=== PATIENT | male | born 1995 | race American Indian/Alaskan Native ===

== ENCOUNTER 2017-12-11 11:29 | Emergency (ER) | payer OTHER ==
[2017-12-11] MEDS ORDERED: ZOFRAN IV ONE ×2 (12:04→13:54)
[2017-12-11] MEDS ORDERED: SUBLIMAZE IV ONE (12:04)
--- NOTE | 2017-12-11 12:07 | Emergency Department Report ---
Blank Doc - Documentation Documentation: Patient is 22 years old male with no significant past medical history. Patient presented to the ER complaining of right testicular pain and swelling. Patient stated that pain started when he wake up this morning about 8:00 AM. Patient is complaining of nausea vomiting and he stated that the patient is going up to his groin area. Patient denied any penile discharge or fever. Differential diagnosis includes acute testicular torsion, epididymitis or possibly obstructed hernia. Stat testicular ultrasound ordered. Patient need to be managed in our main ED.
[2017-12-11] MEDS ORDERED: SUBLIMAZE ONE (12:36)
--- NOTE | 2017-12-11 13:37 | Ultrasound Report ---
FINAL REPORT EXAM: US TESTICULAR DOPPLER COMP HISTORY: right testicular swelling and pain TECHNIQUE: Scrotal ultrasound with Doppler. PRIORS: None. FINDINGS: The right testicle measures 4.7 x 2.4 x 2.5 cm. The left measures 4.7 x 1.9 x 2.6 cm. The right testicle slightly more echogenic than the left. There is no intratesticular mass seen. There is a small to moderate hydrocele on the right. No significant blood flow seen to the right testicle. This is concerning for right testicular torsion. IMPRESSION: Findings are compatible with right-sided testicular torsion. Dr. Woodson notified of results on 12/11/2017 at 1:26 p.m. EST.
[2017-12-11] MEDS ORDERED: DILAUDID ONE (13:44)
[2017-12-11 13:49] VITALS: BP 152/85
[2017-12-11] MEDS ORDERED: DILAUDID IV ONE ×2 (13:54→14:51)
[2017-12-11 13:59] LABS: Hematocrit 46.9 % (35.5-45.6); Hemoglobin 15.5 gm/dl (11.8-15.2); Mean Corpuscular HGB Conc 33 % (32-34); Mean Corpuscular Hemoglobin 31 pg (28-32); Mean Corpuscular Volume 93 fl (84-94); Platelet Count 156 K/mm3 (140-440); Red Blood Count 5.05 M/mm3 (3.65-5.03); Red Cell Distribution Width 14.7 % (13.2-15.2)
--- NOTE | 2017-12-11 14:16 | Emergency Department Report ---
ED Male HPI - General Chief complaint: Abdominal Pain Stated complaint: STOMACH PAIN Time Seen by Provider: 12/11/17 11:54 Source: patient Mode of arrival: Ambulatory Limitations: No Limitations - History of Present Illness Initial comments: 22-year-old male with no significant past medical surgical history presents also complaining of right testicular pain upon awakening at 8 AM. Pain is constant, rated 9/10 in intensity, worse with palpation and movement. Positive associated nausea vomiting. No fever. No urine output since waking up this morning. Denies trauma or fever - Related Data Allergies Allergy/AdvReac Type Severity Reaction Status Date / Time No Known Allergies Allergy Unverified 12/11/17 11:48 ED Review of Systems ROS: Stated complaint: STOMACH PAIN Other details as noted in HPI Comment: All other systems reviewed and negative ED Past Medical Hx - Past Medical History Previous Medical History?: No - Surgical History Past Surgical History?: No - Social History Smoking Status: Current Every Day Smoker Substance Use Type: None ED Physical Exam - General Limitations: No Limitations - Other Other exam information: General: No limitations Head exam: Atraumatic, normocephalic Eyes exam: Normal appearance ENT: Moist mucous membrane, normal oropharynx Neck exam: Normal inspection, full range of motion Respiratory exam: Clear to auscultation bilateral, no wheezes, rales, crackles Cardiovascular: Normal rate and rhythm Abdomen: Soft, nondistended, and nontender, with normal bowel sounds, no rebound, or guarding : Right testicular swelling and tenderness. Circumcised penis without lesions or discharge Extremity: Full range of motion normal inspection no deformity Back: Normal Inspection, full range of motion, no tenderness Neurologic: Alert, oriented x3, cranial nerves intact, no motor or sensory deficit Psychiatric: normal affect, normal mood Skin: Warm, dry, intact ED Course Vital Signs 12/11/17 12/11/17 12/11/17 11:46 13:48 13:49 Temperature 97.5 F L 98.1 F Pulse Rate 55 L 48 L Respiratory 16 17 17 Rate Blood Pressure 137/98 Blood Pressure 152/85 [Left] O2 Sat by Pulse 100 100 100 Oximetry - Reevaluation(s) Reevaluation #1: 12/11/17 14:00 I attempted to detorsoin testicle use an open book technique. There is minimal movement of the testicle and patient did not have any relief in pain. Patient was provided fentanyl and Dilaudid prior to detorsion attempts. Bedside ultrasound performed with vascular probe is still demonstrated no flow to the right testicle. - Consultations Consultation #1: 12/11/17 13:30 [facility] called via transfer service. Awaiting urology consult at 13:55 [facility] contacted via transfer service, awaitng call back 13:45 attempted [facility] (urolgy here but no personal loan specialist) no response 14:[address] [facility] for transfer to [facility] ED. ER physician accepted pt fro ED to ED transfer and will consult Urology upon arrival ED Medical Decision Making - Lab Data Result diagrams: 12/11/17 13:32 12/11/17 13:32 Lab Results 12/11/17 12/11/17 Range/Units 13:32 13:32 WBC 18.4 H (4.5-11.0) K/mm3 RBC 5.05 H (3.65-5.03) M/mm3 Hgb 15.5 H (11.8-15.2) gm/dl Hct 46.9 H (35.5-45.6) % MCV 93 (84-94) fl MCH 31 (28-32) pg MCHC 33 (32-34) % RDW 14.7 (13.2-15.2) % Plt Count 156 (140-440) K/mm3 Add Manual Diff Complete Total Counted 100 Seg Neuts % (Manual) 54.0 (40.0-70.0) % Band Neutrophils % 0 % Lymphocytes % (Manual) 6.0 L (13.4-35.0) % Reactive Lymphs % (Man) 0 % Monocytes % (Manual) 3.0 (0.0-7.3) % Eosinophils % (Manual) 35.0 H (0.0-4.3) % Basophils % (Manual) 2.0 H (0.0-1.8) % Metamyelocytes % 0 % Myelocytes % 0 % Promyelocytes % 0 % Blast Cells % 0 % Nucleated RBC % Not Reportable Seg Neutrophils # Man 9.9 H (1.8-7.7) K/mm3 Band Neutrophils # 0.0 K/mm3 Lymphocytes # (Manual) 1.1 L (1.2-5.4) K/mm3 Abs React Lymphs (Man) 0.0 K/mm3 Monocytes # (Manual) 0.6 (0.0-0.8) K/mm3 Eosinophils # (Manual) 6.4 H (0.0-0.4) K/mm3 Basophils # (Manual) 0.4 H (0.0-0.1) K/mm3 Metamyelocytes # 0.0 K/mm3 Myelocytes # 0.0 K/mm3 Promyelocytes # 0.0 K/mm3 Blast Cells # 0.0 K/mm3 WBC Morphology Not Reportable Hypersegmented Neuts Not Reportable Hyposegmented Neuts Not Reportable Hypogranular Neuts Not Reportable Smudge Cells Not Reportable Toxic Granulation Not Reportable Toxic Vacuolation Not Reportable Dohle Bodies Not Reportable Pelger-Huet Anomaly Not Reportable Kellen Rods Not Reportable Platelet Estimate Cons Clumped Platelets Not Reportable Plt Clumps, EDTA Not Reportable Large Platelets Not Reportable Giant Platelets Not Reportable Platelet Satelliting Not Reportable Plt Morphology Comment Not Reportable RBC Morphology Normal Dimorphic RBCs Not Reportable Polychromasia Not Reportable Hypochromasia Not Reportable Poikilocytosis Not Reportable Anisocytosis Not Reportable Microcytosis Not Reportable Macrocytosis Not Reportable Spherocytes Not Reportable Pappenheimer Bodies Not Reportable Sickle Cells Not Reportable Target Cells Not Reportable Tear Drop Cells Not Reportable Ovalocytes Not Reportable Helmet Cells Not Reportable Mccabe-[place] Bodies Not Reportable [place] Not Reportable [place] Cells Not Reportable Bite Cells Not Reportable Crenated Cell Not Reportable Elliptocytes Not Reportable Acanthocytes (Spur) Not Reportable Rouleaux Not Reportable Hemoglobin C Crystals Not Reportable Schistocytes Not Reportable Malaria parasites Not Reportable Misael Bodies Not Reportable Hem Pathologist Commnt No Sodium 140 (137-145) mmol/L Potassium 3.5 L (3.6-5.0) mmol/L Chloride 101.4 (98-107) mmol/L Carbon Dioxide 22 (22-30) mmol/L Anion Gap 20 mmol/L BUN 14 (9-20) mg/dL Creatinine 0.9 (0.8-1.5) mg/dL Estimated GFR > 60 ml/min BUN/Creatinine Ratio 16 % Glucose 86 (75-100) mg/dL Calcium 9.8 (8.4-10.2) mg/dL Total Bilirubin 0.50 (0.1-1.2) mg/dL AST 21 (5-40) units/L ALT 21 (7-56) units/L Alkaline Phosphatase 82 (35-129) units/L Total Protein 8.6 H (6.3-8.2) g/dL Albumin 4.7 (3.9-5) g/dL Albumin/Globulin Ratio 1.2 % - Radiology Data Radiology results: report reviewed TECHNIQUE: Scrotal ultrasound with Doppler. PRIORS: None. FINDINGS: The right testicle measures 4.7 x 2.4 x 2.5 cm. The left measures 4.7 x 1.9 x 2.6 cm. The right testicle slightly more echogenic than the left. There is no intratesticular mass seen. There is a small to moderate hydrocele on the right. No significant blood flow seen to the right testicle. This is concerning for right testicular torsion. IMPRESSION: Findings are compatible with right-sided testicular torsion. Dr. Woodson notified of results on 12/11/2017 at 1:26 p.m. EST. - Medical Decision Making Patient with acute right testicular torsion with unsuccessful detorsion attempt in the ed We do not have urology personal loan specialist. I was able to have [facility] except the patient for transfer. Patient be emergently transferred to [facility] for definitive management and urology consultation. Informed RN that pt needs stat (lights and sirens) tranport to [facility]. - Differential Diagnosis epididymitis, testicular torsion, renal colic, orchitis Critical Care Time: No Critical care attestation.: If time is entered above; I have spent that time in minutes in the direct care of this critically ill patient, excluding procedure time. ED Disposition Clinical Impression: Right testicular torsion Disposition: DC/TX-70 ANOTHER TYPE [facility]TH[facility]ARE Is pt being admited?: No Condition: Stable Time of Disposition: 14:19 (accepted by dr Kang/urology/[facility])
[2017-12-11 14:18] LABS: Alanine Aminotransferase 21 units/L (7-56); Albumin 4.7 g/dL (3.9-5); BUN/Creatinine Ratio 16; Blood Urea Nitrogen 14 mg/dL (9-20); Calcium 9.8 mg/dL (8.4-10.2); Hemolysis Index 3
[2017-12-11 14:34] LABS: RBC Morphology Normal; Total Cells Counted 100
[2017-12-11 14:35] LABS: Platelet Estimate Cons
--- NOTE | 2017-12-12 07:43 | Progress Note ---
Hospitalist Physical - Constitutional Vitals: Temp Pulse Resp BP Pulse Ox 98.1 F 48 L 17 152/85 100 12/11/17 13:48 12/11/17 13:48 12/11/17 13:49 12/11/17 13:48 12/11/17 13:49 Results - Labs CBC & Chem 7: 12/11/17 13:32 12/11/17 13:32 Labs: Laboratory Last Values WBC 18.4 K/mm3 (4.5-11.0) H 12/11/17 13:32 RBC 5.05 M/mm3 (3.65-5.03) H 12/11/17 13:32 Hgb 15.5 gm/dl (11.8-15.2) H 12/11/17 13:32 Hct 46.9 % (35.5-45.6) H 12/11/17 13:32 MCV 93 fl (84-94) 12/11/17 13:32 MCH 31 pg (28-32) 12/11/17 13:32 MCHC 33 % (32-34) 12/11/17 13:32 RDW 14.7 % (13.2-15.2) 12/11/17 13:32 Plt Count 156 K/mm3 (140-440) 12/11/17 13:32 Add Manual Diff Complete 12/11/17 13:32 Total Counted 100 12/11/17 13:32 Seg Neuts % (Manual) 54.0 % (40.0-70.0) 12/11/17 13:32 Band Neutrophils % 0 % 12/11/17 13:32 Lymphocytes % (Manual) 6.0 % (13.4-35.0) L 12/11/17 13:32 Reactive Lymphs % (Man) 0 % 12/11/17 13:32 Monocytes % (Manual) 3.0 % (0.0-7.3) 12/11/17 13:32 Eosinophils % (Manual) 35.0 % (0.0-4.3) H 12/11/17 13:32 Basophils % (Manual) 2.0 % (0.0-1.8) H 12/11/17 13:32 Metamyelocytes % 0 % 12/11/17 13:32 Myelocytes % 0 % 12/11/17 13:32 Promyelocytes % 0 % 12/11/17 13:32 Blast Cells % 0 % 12/11/17 13:32 Nucleated RBC % Not Reportable 12/11/17 13:32 Seg Neutrophils # Man 9.9 K/mm3 (1.8-7.7) H 12/11/17 13:32 Band Neutrophils # 0.0 K/mm3 12/11/17 13:32 Lymphocytes # (Manual) 1.1 K/mm3 (1.2-5.4) L 12/11/17 13:32 Abs React Lymphs (Man) 0.0 K/mm3 12/11/17 13:32 Monocytes # (Manual) 0.6 K/mm3 (0.0-0.8) 12/11/17 13:32 Eosinophils # (Manual) 6.4 K/mm3 (0.0-0.4) H 12/11/17 13:32 Basophils # (Manual) 0.4 K/mm3 (0.0-0.1) H 12/11/17 13:32 Metamyelocytes # 0.0 K/mm3 12/11/17 13:32 Myelocytes # 0.0 K/mm3 12/11/17 13:32 Promyelocytes # 0.0 K/mm3 12/11/17 13:32 Blast Cells # 0.0 K/mm3 12/11/17 13:32 WBC Morphology Not Reportable 12/11/17 13:32 Hypersegmented Neuts Not Reportable 12/11/17 13:32 Hyposegmented Neuts Not Reportable 12/11/17 13:32 Hypogranular Neuts Not Reportable 12/11/17 13:32 Smudge Cells Not Reportable 12/11/17 13:32 Toxic Granulation Not Reportable 12/11/17 13:32 Toxic Vacuolation Not Reportable 12/11/17 13:32 Dohle Bodies Not Reportable 12/11/17 13:32 Pelger-Huet Anomaly Not Reportable 12/11/17 13:32 Kellen Rods Not Reportable 12/11/17 13:32 Platelet Estimate Cons 12/11/17 13:32 Clumped Platelets Not Reportable 12/11/17 13:32 Plt Clumps, EDTA Not Reportable 12/11/17 13:32 Large Platelets Not Reportable 12/11/17 13:32 Giant Platelets Not Reportable 12/11/17 13:32 Platelet Satelliting Not Reportable 12/11/17 13:32 Plt Morphology Comment Not Reportable 12/11/17 13:32 RBC Morphology Normal 12/11/17 13:32 Dimorphic RBCs Not Reportable 12/11/17 13:32 Polychromasia Not Reportable 12/11/17 13:32 Hypochromasia Not Reportable 12/11/17 13:32 Poikilocytosis Not Reportable 12/11/17 13:32 Anisocytosis Not Reportable 12/11/17 13:32 Microcytosis Not Reportable 12/11/17 13:32 Macrocytosis Not Reportable 12/11/17 13:32 Spherocytes Not Reportable 12/11/17 13:32 Pappenheimer Bodies Not Reportable 12/11/17 13:32 Sickle Cells Not Reportable 12/11/17 13:32 Target Cells Not Reportable 12/11/17 13:32 Tear Drop Cells Not Reportable 12/11/17 13:32 Ovalocytes Not Reportable 12/11/17 13:32 Helmet Cells Not Reportable 12/11/17 13:32 Mccabe-[place] Bodies Not Reportable 12/11/17 13:32 [place] Rings Not Reportable 12/11/17 13:32 [place] Cells Not Reportable 12/11/17 13:32 Bite Cells Not Reportable 12/11/17 13:32 Crenated Cell Not Reportable 12/11/17 13:32 Elliptocytes Not Reportable 12/11/17 13:32 Acanthocytes (Spur) Not Reportable 12/11/17 13:32 Rouleaux Not Reportable 12/11/17 13:32 Hemoglobin C Crystals Not Reportable 12/11/17 13:32 Schistocytes Not Reportable 12/11/17 13:32 Malaria parasites Not Reportable 12/11/17 13:32 Misael Bodies Not Reportable 12/11/17 13:32 Hem Pathologist Commnt No 12/11/17 13:32 Sodium 140 mmol/L (137-145) 12/11/17 13:32 Potassium 3.5 mmol/L (3.6-5.0) L 12/11/17 13:32 Chloride 101.4 mmol/L (98-107) 12/11/17 13:32 Carbon Dioxide 22 mmol/L (22-30) 12/11/17 13:32 Anion Gap 20 mmol/L 12/11/17 13:32 BUN 14 mg/dL (9-20) 12/11/17 13:32 Creatinine 0.9 mg/dL (0.8-1.5) 12/11/17 13:32 Estimated GFR > 60 ml/min 12/11/17 13:32 BUN/Creatinine Ratio 16 % 12/11/17 13:32 Glucose 86 mg/dL (75-100) 12/11/17 13:32 Calcium 9.8 mg/dL (8.4-10.2) 12/11/17 13:32 Total Bilirubin 0.50 mg/dL (0.1-1.2) 12/11/17 13:32 AST 21 units/L (5-40) 12/11/17 13:32 ALT 21 units/L (7-56) 12/11/17 13:32 Alkaline Phosphatase 82 units/L (35-129) 12/11/17 13:32 Total Protein 8.6 g/dL (6.3-8.2) H 12/11/17 13:32 Albumin 4.7 g/dL (3.9-5) 12/11/17 13:32 Albumin/Globulin Ratio 1.2 % 12/11/17 13:32
== END 2017-12-11 15:40 | disposition other institution (70) ==
LOC: ED 11:29
DX: N44.00 Torsion of testis, unspecified (principal); F17.200 Nicotine dependence, unspecified, uncomplicated
CPT/HCPCS: 36415; 80053; 85007; 85025; 93975; 96374; 96375; 96376; 99285; J1170; J2405; J3010